=== PATIENT | male | born 1990 | race American Indian/Alaskan Native ===

== ENCOUNTER 2018-09-25 19:28 | Emergency (ER) | payer SELFPAY ==
[2018-09-25 19:29] VITALS: BMI 22.5
[2018-09-25 19:50] VITALS: BP 132/82; PULSE 70; TEMP 98.2; O2SAT 98
[2018-09-25] MEDS ORDERED: Tdap Vaccine 0.5 ml Vial (10-64 yrs) IM ONE ×2 (20:42→20:52)
[2018-09-25] MEDS ORDERED: Bacitracin 500 Units/gm Oint Foilpak UD ONE (21:12)
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
[2018-09-25 21:31] VITALS: RESP 20
--- NOTE | 2018-09-26 11:28 | RAD ---
Bilateral hands three views HISTORY: Pain. Comparison: None available. Findings: Right hand: No evidence of acute displaced fracture or dislocation. Left hand: No evidence of acute displaced fracture or dislocation. Impression: Negative acute. If pain persists, consider MRI.
== END 2018-09-25 21:30 | disposition home or self-care (01) ==
LOC: C.ER 19:28
DX: S60.222A Contusion of left hand, initial encounter (principal); V18.4XXA Pedal cycle driver injured in noncollision transport accident in traffic accident, initial encounter; Y92.89 Other specified places as the place of occurrence of the external cause; Z23 Encounter for immunization